=== PATIENT | male | born 1960 | race Caucasian/White ===

== ENCOUNTER 2022-06-07 14:46 | Inpatient (IN) | payer MEDICARE, OTHER ==
[~2022-06-07] VITALS: Ht 177.8 cm; Wt 66.2 kg
[2022-06-07 16:06] LABS: RED BLOOD COUNT 3.7 M/UL (4.20-5.50); WHITE BLOOD COUNT 19.7 K/UL (4.5-11.0)
[2022-06-07 16:37] LABS: BUN/CREATININE RATIO 20 (0-10)
[2022-06-07] MEDS ORDERED: LEVOTHYROXINE125 MCG PO (16:54)
[2022-06-07] MEDS ORDERED: HYDROCODON-ACE1 EAC6 PO (16:54)
[2022-06-07] MEDS ORDERED: GABAPENTIN800 MG PO (16:54)
[2022-06-08 04:04] LABS: HEMOGLOBIN 11.6 gm/dl (14.0-17.5); RED BLOOD COUNT 3.61 M/UL (4.20-5.50); WHITE BLOOD COUNT 17.2 K/UL (4.5-11.0)
[2022-06-08 04:24] LABS: BUN/CREATININE RATIO 20 (0-10)
--- NOTE | 2022-06-08 08:55 | NUR ---
PATIENT TRANSPORTED VIA BED TO LIP AND [facility]ILDER WITH [facility] RN AND ORTHOPEDIC PODIATRIST AT BEDSIDE. ALL CONSENTS AND CHART IS TAKEN WITH PATIENT TO LIP AND GATE BUILDER. PATIENT IS STABLE CONDITION WITH BP: 90/62 (68), HR 78, RESP: 25, 97% ON 2L NC.
[2022-06-08] MEDS ORDERED: DIGOXIN125 MCG PO (11:05)
[2022-06-08] MEDS ORDERED: ASPIRIN EC81 MG PO (11:05)
[2022-06-08] MEDS ORDERED: ZOSYN (11:06)
--- NOTE | 2022-06-08 16:25 | NUR ---
TR BAND REMOVED PER PROTOCOL. SITE INTACT, SOFT AND NO SIGNS OF HEMATOMA OR BLEEDING.
[2022-06-09 05:08] LABS: HEMOGLOBIN 11.1 gm/dl (14.0-17.5); RED BLOOD COUNT 3.39 M/UL (4.20-5.50); WHITE BLOOD COUNT 14.3 K/UL (4.5-11.0)
[2022-06-09 05:34] LABS: BUN/CREATININE RATIO 22 (0-10)
[2022-06-09] MEDS ORDERED: [UNRECOGNIZED DRUG - OTHER] (10:29)
[2022-06-09] MEDS ORDERED: HEPARIN (10:29)
== END 2022-06-09 13:14 | disposition short-term general hospital (02) | DRG 280 ==
LOC: CCU 15:20
PROVIDERS: Internal Medicine; ADMIT Internal Medicine
PROC: B24BZZZ Ultrasonography of Heart with Aorta (ICD-10-PCS; principal; 2022-06-07)
PROC: 4A023N7 Measurement of Cardiac Sampling and Pressure, Left Heart, Percutaneous Approach (ICD-10-PCS; 2022-06-08)
PROC: B2111ZZ Fluoroscopy of Multiple Coronary Arteries using Low Osmolar Contrast (ICD-10-PCS; 2022-06-08)
PROC: 4A033BC Measurement of Arterial Pressure, Coronary, Percutaneous Approach (ICD-10-PCS; 2022-06-08)
DX: I21.19 ST elevation (STEMI) myocardial infarction involving other coronary artery of inferior wall (principal); I50.21 Acute systolic (congestive) heart failure; K81.0 Acute cholecystitis; Z20.822 Contact with and (suspected) exposure to COVID-19; G89.29 Other chronic pain; E03.9 Hypothyroidism, unspecified; E11.9 Type 2 diabetes mellitus without complications; I08.1 Rheumatic disorders of both mitral and tricuspid valves; Z96.698 Presence of other orthopedic joint implants; I25.5 Ischemic cardiomyopathy; F17.210 Nicotine dependence, cigarettes, uncomplicated; M54.9 Dorsalgia, unspecified; Z79.82 Long term (current) use of aspirin; Z98.890 Other specified postprocedural states; Z98.1 Arthrodesis status; Z83.3 Family history of diabetes mellitus
CPT/HCPCS: ECHO; 36415; 80048; 80053; 82550; 82553; 83735; 84484; 85027; 85610; 85730; 93005; 93306; 93571; 99152; 99153; C1769; C1887; C1894; J0461; J1265; J1644; J2250; J2270; J2370; J2543; J3010; J7040; Q9967